=== PATIENT | female | born 1965 | race Caucasian/White ===

== ENCOUNTER 2017-04-22 11:52 | Emergency (ER) | payer OTHER ==
[~2017-04-22] VITALS: Ht 157.5 cm; Wt 109.8 kg
[~2017-04-22 11:52] MED LIST: ADVAIR HFA 230M12 GM INH; ALBUTEROL2.5 MG/0.5 INH; AUGMENTIN 875875 MG PO; DOXYCYCLINE 10100 MG PO; HYDROCODON-ACE1 EAC7 PO; HYDROCODONE-AP1 EAC6 PO; LIDOCAINE VISC100 ML PO; METOPROLOL 100100 MG PO; PENICILLIN VK500 M1 PO; PERCOCET 5-3251 EACH PO; TESSALON PERLE100 MG PO; VERAPAMIL HCL240 M1 PO; ZOFRAN ODT4 MG PO
[2017-04-22] MEDS ORDERED: VENTOLIN HFA 1818 GM INH (12:11)
[2017-04-22 12:32] LABS: ABSOLUTE EOSINOPHILS 0.1 thou/uL (0.0-0.7); ABSOLUTE LYMPHOCYTES 0.6 thou/uL (0.8-5.3); ABSOLUTE MONOCYTES 0.7 thou/uL (0.0-1.2); ABSOLUTE NEUTROPHILS 3.7 thou/uL (1.6-8.1); BASOPHILS 0.8 %; EOSINOPHILS 1.4 %; HEMATOCRIT 37.1 % (37.0-47.0); HEMOGLOBIN 12.3 gm/dL (12.0-15.0); LYMPHOCYTES 11.1 %; MCH 26.2 pg (26.0-34.0); MCHC 33.2 g/dL (28.0-37.0); MCV 78.9 fL (80.0-100.0); MONOCYTES 13.7 %; MPV 7.2 fl. (7.2-11.1); NUCLEATED RBCS 0 /100WBC; PLATELET COUNT* 253 thou/uL (150-400); RDW-CV 21.7 % (10.5-14.5); WBC 5.1 thou/uL (4.0-11.0)
[2017-04-22 12:39] LABS: ANION GAP 9 mmol/L (7-16); BUN 9 mg/dL (7-18); CALCIUM 8.6 mg/dL (8.5-10.1); CHLORIDE 103 mmol/L (98-107); CO2 24 mmol/L (21-32); CREATININE 0.7 mg/dL (0.6-1.3); GLUCOSE 97 mg/dL (70-99); POTASSIUM 3.8 mmol/L (3.5-5.1); SODIUM 136 mmol/L (136-145)
[2017-04-22 12:46] LABS: ALBUMIN 3.4 g/dL (3.4-5.0); ALKALINE PHOSPHATASE 132 U/L (46-116); SGOT 36 U/L (15-37); SGPT 59 U/L (30-65); TOTAL BILIRUBIN 0.5 mg/dL (<0.1-1.0); TOTAL PROTEIN 7.1 g/dL (6.4-8.2); TROPONIN-I LEVEL <0.06 ng/mL (<0.06)
[2017-04-22 12:56] LABS: PLATELET ESTIMATE ADEQUATE
[2017-04-22 12:57] LABS: MICROCYTES 1+; POIKILOCYTOSIS 1+
[2017-04-22 12:58] LABS: ANISOCYTOSIS 2+; OVALOCYTES Occasional
[2017-04-22] MEDS ORDERED: NAPROSYN500 MG PO (15:04)
[2017-04-22 15:31] VITALS: BP 103/52
--- NOTE | 2017-04-22 16:18 | EKG ---
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 : 1965 Requested By: Amarjit Do Order Number: [id number] MD: Jose Seth Measurements Intervals [place] Rate: 73 P: 31 [place]: 171 QRS: -56 QRSD: 88 T: 63 QT: 368 QTc: 406 Interpretive Statements Sinus rhythm Left anterior fascicular block Abnormal R-wave progression, late transition Compared to ECG 08/14/2016 07:55:33 ST (T wave) deviation no longer present Electronically Signed On 04-22-2017 16:18:31 CDT by Jose Seth [email or web address] <ELECTRONICALLY SIGNED> By: Jose Seth MD, [facility] 04/22/17 1618 1211 1211 Jose Seth MD, [facility] /EPI
== END 2017-04-22 15:31 | disposition home or self-care (01) ==
LOC: M.ERS 11:52
PROVIDERS: Nurse Practitioner Family
DX: B34.9 Viral infection, unspecified (principal); R07.89 Other chest pain; F41.0 Panic disorder [episodic paroxysmal anxiety]; J45.909 Unspecified asthma, uncomplicated; F17.210 Nicotine dependence, cigarettes, uncomplicated; Z90.710 Acquired absence of both cervix and uterus; Z88.1 Allergy status to other antibiotic agents; Z88.2 Allergy status to sulfonamides

== ENCOUNTER 2017-08-05 19:34 | Emergency (ER) | payer OTHER ==
[~2017-08-05] VITALS: Ht 154.9 cm; Wt 114.8 kg
[~2017-08-05 19:34] MED LIST changes: +NAPROSYN500 MG PO; +VENTOLIN HFA 1818 GM INH
[2017-08-05] MEDS ORDERED: IRON325 PO (19:41)
[2017-08-05] MEDS ORDERED: MEDROLDOSEPACK PO (20:15)
[2017-08-05] MEDS ORDERED: ROBAXIN 750 MG750 M1 PO (20:15)
[2017-08-05] MEDS ORDERED: IBUPROFEN 800800 M1 PO (20:15)
[2017-08-05 20:29] VITALS: BP 142/64
== END 2017-08-05 20:30 | disposition home or self-care (01) ==
LOC: M.ERS 19:34
DX: G89.29 Other chronic pain (principal); M54.32 Sciatica, left side; M54.9 Dorsalgia, unspecified; F41.0 Panic disorder [episodic paroxysmal anxiety]; J45.909 Unspecified asthma, uncomplicated; F17.210 Nicotine dependence, cigarettes, uncomplicated; Z90.710 Acquired absence of both cervix and uterus; Z88.1 Allergy status to other antibiotic agents

== ENCOUNTER 2017-09-08 23:27 | Emergency (ER) | payer OTHER ==
[~2017-09-08] VITALS: Ht 157.5 cm; Wt 110.2 kg
[~2017-09-08 23:27] MED LIST changes: +IBUPROFEN 800800 M1 PO; +IRON325 PO; +MEDROLDOSEPACK PO; +ROBAXIN 750 MG750 M1 PO
[2017-09-09 00:57] VITALS: BP 143/74
== END 2017-09-09 00:58 | disposition home or self-care (01) ==
LOC: M.ERS 23:27
DX: G43.909 Migraine, unspecified, not intractable, without status migrainosus (principal); R11.2 Nausea with vomiting, unspecified; J45.909 Unspecified asthma, uncomplicated; F41.0 Panic disorder [episodic paroxysmal anxiety]; F17.210 Nicotine dependence, cigarettes, uncomplicated; Z88.1 Allergy status to other antibiotic agents; Z90.710 Acquired absence of both cervix and uterus

== ENCOUNTER 2017-10-23 01:15 | Emergency (ER) | payer OTHER ==
[~2017-10-23] VITALS: Ht 157.5 cm; Wt 115.2 kg
[2017-10-23 01:40] LABS: ABSOLUTE BASOPHILS 0.1 thou/uL (0.0-0.2); ABSOLUTE EOSINOPHILS 0.3 thou/uL (0.0-0.7); ABSOLUTE LYMPHOCYTES 3.3 thou/uL (0.8-5.3); ABSOLUTE MONOCYTES 0.6 thou/uL (0.0-1.2); ABSOLUTE NEUTROPHILS 5.3 thou/uL (1.6-8.1); BASOPHILS 0.6 %; EOSINOPHILS 3.1 %; HEMATOCRIT 46.3 % (37.0-47.0); HEMOGLOBIN 15.7 gm/dL (12.0-15.0); LYMPHOCYTES 34.5 %; MCH 32.1 pg (26.0-34.0); MCHC 33.8 g/dL (28.0-37.0); MCV 95.2 fL (80.0-100.0); MONOCYTES 6.5 %; MPV 7.4 fl. (7.2-11.1); NUCLEATED RBCS 0 /100WBC; PLATELET COUNT* 284 thou/uL (150-400); POLYS 55.3 %; RBC 4.87 mil/uL (4.20-5.00); RDW-CV 14.5 % (10.5-14.5); WBC 9.6 thou/uL (4.0-11.0)
[2017-10-23 01:57] LABS: ANION GAP 7 mmol/L (7-16); BUN 15 mg/dL (7-18); CALCIUM 8.9 mg/dL (8.5-10.1); CHLORIDE 104 mmol/L (98-107); CO2 27 mmol/L (21-32); CREATININE 0.7 mg/dL (0.6-1.3); GLUCOSE 107 mg/dL (70-99); POTASSIUM 3.9 mmol/L (3.5-5.1); SODIUM 138 mmol/L (136-145)
[2017-10-23 02:08] LABS: ALBUMIN 3.6 g/dL (3.4-5.0); ALKALINE PHOSPHATASE 136 U/L (46-116); LIPASE 104 U/L (73-393); SGOT 27 U/L (15-37); SGPT 55 U/L (30-65); TOTAL BILIRUBIN 0.5 mg/dL (<0.1-1.0); TOTAL PROTEIN 7.4 g/dL (6.4-8.2); TROPONIN-I LEVEL <0.06 ng/mL (<0.06)
[2017-10-23 02:26] LABS: NT-PRO BRAIN NAT PEPTIDE 25 pg/mL (<300)
[2017-10-23 03:33] VITALS: BP 122/66
--- NOTE | 2017-10-24 16:58 | EKG ---
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 PETERS : 1965 Requested By: Deshawn Lorenzana Order Number: [id number] MD: Bro Norton Measurements Intervals [place] Rate: 53 P: 18 [place]: 169 QRS: -77 QRSD: 108 T: 65 QT: 438 QTc: 412 Interpretive Statements Sinus rhythm Left anterior fascicular block Compared to ECG 04/22/2017 12:11:53 No significant changes Electronically Signed On 10-24-2017 16:57:49 CDT by Bro Norton [email or web address] <ELECTRONICALLY SIGNED> By: Bro Norton MD, [facility] 10/24/17 1657 0119 0119 Bro Norton MD, [facility] /EPI
== END 2017-10-23 03:34 | disposition home or self-care (01) ==
LOC: M.ERS 01:15
PROVIDERS: Emergency Medicine Emergency Medical Services
DX: R00.2 Palpitations (principal); R42 Dizziness and giddiness; J45.909 Unspecified asthma, uncomplicated; F41.0 Panic disorder [episodic paroxysmal anxiety]; F17.210 Nicotine dependence, cigarettes, uncomplicated; Z90.710 Acquired absence of both cervix and uterus; Z88.1 Allergy status to other antibiotic agents; Z88.2 Allergy status to sulfonamides

== ENCOUNTER 2018-01-06 07:29 | Emergency (ER) | payer OTHER ==
[~2018-01-06] VITALS: Ht 157.5 cm; Wt 113.4 kg
[2018-01-06 07:43] LABS: URINE BILIRUBIN NEGATIVE (Negative); URINE BLOOD 2+ (Negative); URINE CLARITY CLEAR; URINE COLOR YELLOW; URINE GLUCOSE-RANDOM NEGATIVE (Negative); URINE KETONES NEGATIVE (Negative); URINE LEUKOCYTES-REFLEX NEGATIVE (Negative); URINE NITRITE-REFLEX NEGATIVE (Negative); URINE PROTEIN NEGATIVE (Negative); URINE SPECIFIC GRAVITY 1.025 (1.005-1.030); URINE UROBILINOGEN 0.2 E.U./dl (0.2-1.0)
[2018-01-06 07:55] LABS: ABSOLUTE BASOPHILS 0.1 thou/uL (0.0-0.2); ABSOLUTE EOSINOPHILS 0.4 thou/uL (0.0-0.7); ABSOLUTE LYMPHOCYTES 2.6 thou/uL (0.8-5.3); ABSOLUTE MONOCYTES 0.5 thou/uL (0.0-1.2); ABSOLUTE NEUTROPHILS 5.3 thou/uL (1.6-8.1); BASOPHILS 0.8 %; HEMATOCRIT 47.6 % (37.0-47.0); HEMOGLOBIN 16.3 gm/dL (12.0-15.0); LYMPHOCYTES 29.4 %; MCH 32.4 pg (26.0-34.0); MCHC 34.2 g/dL (28.0-37.0); MCV 94.8 fL (80.0-100.0); MONOCYTES 5.9 %; MPV 7.4 fl. (7.2-11.1); NUCLEATED RBCS 0 /100WBC; PLATELET COUNT* 297 thou/uL (150-400); POLYS 59.9 %; RBC 5.02 mil/uL (4.20-5.00); RDW-CV 12.9 % (10.5-14.5); WBC 8.9 thou/uL (4.0-11.0)
[2018-01-06 08:02] LABS: CALCIUM 8.9 mg/dL (8.5-10.1); CREATININE 0.7 mg/dL (0.6-1.3); POTASSIUM 3.9 mmol/L (3.5-5.1)
[2018-01-06 08:07] LABS: ALBUMIN 3.5 g/dL (3.4-5.0); TOTAL BILIRUBIN 0.7 mg/dL (<0.1-1.0); TOTAL PROTEIN 7.2 g/dL (6.4-8.2)
[2018-01-06 08:12] LABS: SQUAMOUS 4-10 Moderate /LPF (0-3)
[2018-01-06 08:15] LABS: CASTS None Seen /LPF (None Seen); CRYSTALS None Seen /LPF (None Seen); MUCUS >6 Heavy strn/LPF (None Seen); URINE RBC 3-10 Few /HPF (0-2); URINE WBC-REFLEX 0-5 Rare /HPF (0-5)
[2018-01-06] MEDS ORDERED: NORCO 5-325 TA1 EACH PO (10:09)
[2018-01-06] MEDS ORDERED: KEFLEX500 M1 PO (10:09)
[2018-01-06] MEDS ORDERED: PHENERGAN 25 MG25 M1 PO (10:09)
[2018-01-06 10:25] VITALS: BP 119/72
[2018-01-06] MEDS ORDERED: PYRIDIUM100 M1 PO (19:55)
[2018-01-06] MEDS ORDERED: NABUMETONE 750750 M1 PO (19:55)
== END 2018-01-06 10:25 | disposition home or self-care (01) ==
LOC: M.ERS 07:29
PROVIDERS: Personal Emergency Response Attendant
DX: R10.32 Left lower quadrant pain (principal); R10.12 Left upper quadrant pain; R30.0 Dysuria; J45.909 Unspecified asthma, uncomplicated; Z90.49 Acquired absence of other specified parts of digestive tract; Z90.710 Acquired absence of both cervix and uterus; F17.210 Nicotine dependence, cigarettes, uncomplicated; Z88.1 Allergy status to other antibiotic agents; Z88.2 Allergy status to sulfonamides

== ENCOUNTER 2018-01-06 19:09 | Emergency (ER) | payer OTHER ==
[~2018-01-06] VITALS: Ht 157.5 cm; Wt 113.4 kg
[~2018-01-06 19:09] MED LIST changes: +KEFLEX500 M1 PO; +NORCO 5-325 TA1 EACH PO; +PHENERGAN 25 MG25 M1 PO
[2018-01-06] MEDS ORDERED: PYRIDIUM100 M1 PO (19:55)
[2018-01-06] MEDS ORDERED: NABUMETONE 750750 M1 PO (19:55)
[2018-01-06 21:13] LABS: ABSOLUTE BASOPHILS 0.1 thou/uL (0.0-0.2); ABSOLUTE EOSINOPHILS 0.3 thou/uL (0.0-0.7); ABSOLUTE LYMPHOCYTES 2.2 thou/uL (0.8-5.3); ABSOLUTE MONOCYTES 0.5 thou/uL (0.0-1.2); ABSOLUTE NEUTROPHILS 4.5 thou/uL (1.6-8.1); BASOPHILS 0.8 %; EOSINOPHILS 4.1 %; HEMATOCRIT 43.3 % (37.0-47.0); HEMOGLOBIN 14.8 gm/dL (12.0-15.0); LYMPHOCYTES 29.1 %; MCH 32.6 pg (26.0-34.0); MCHC 34.1 g/dL (28.0-37.0); MCV 95.6 fL (80.0-100.0); MONOCYTES 6.8 %; MPV 7.4 fl. (7.2-11.1); NUCLEATED RBCS 0 /100WBC; PLATELET COUNT* 261 thou/uL (150-400); POLYS 59.2 %; RBC 4.53 mil/uL (4.20-5.00); RDW-CV 13.4 % (10.5-14.5); WBC 7.6 thou/uL (4.0-11.0)
[2018-01-06 21:23] LABS: ANION GAP 6 mmol/L (7-16); BUN 16 mg/dL (7-18); CALCIUM 8.9 mg/dL (8.5-10.1); CHLORIDE 103 mmol/L (98-107); CO2 29 mmol/L (21-32); CREATININE 0.8 mg/dL (0.6-1.3); GLUCOSE 101 mg/dL (70-99); POTASSIUM 3.8 mmol/L (3.5-5.1); SODIUM 138 mmol/L (136-145)
[2018-01-06 21:30] LABS: ALBUMIN 3.1 g/dL (3.4-5.0); ALKALINE PHOSPHATASE 117 U/L (46-116); SGOT 54 U/L (15-37); SGPT 86 U/L (30-65); TOTAL BILIRUBIN 0.5 mg/dL (<0.1-1.0); TOTAL PROTEIN 6.4 g/dL (6.4-8.2); TROPONIN-I LEVEL <0.06 ng/mL (<0.06)
[2018-01-06 23:49] VITALS: BP 152/74
--- NOTE | 2018-01-09 15:29 | EKG ---
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 : 1965 Requested By: Jodie Lora Order Number: [id number] MD: Bro Norton Measurements Intervals [place] Rate: 51 P: 48 [place]: 175 QRS: -62 QRSD: 95 T: 103 QT: 429 QTc: 396 Interpretive Statements Sinus rhythm LAD, consider left anterior fascicular block Nonspecific T abnrm, anterolateral leads Compared to ECG 10/23/2017 01:19:09 No significant changes Electronically Signed On 01-09-2018 15:28:55 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
== END 2018-01-06 23:51 | disposition home or self-care (01) ==
LOC: M.ERS 19:09
PROVIDERS: Nurse Practitioner Family
DX: N39.0 Urinary tract infection, site not specified (principal); R07.89 Other chest pain; J45.909 Unspecified asthma, uncomplicated; Z90.49 Acquired absence of other specified parts of digestive tract; Z90.710 Acquired absence of both cervix and uterus; Z88.2 Allergy status to sulfonamides; Z88.1 Allergy status to other antibiotic agents; F17.210 Nicotine dependence, cigarettes, uncomplicated